=== PATIENT | female | born 1950 | race American Indian/Alaskan Native ===

== ENCOUNTER 2018-09-09 07:24 | Day surgery (SDC) | payer MEDICARE ==
[~2018-09-09 07:24] MED LIST: TETRACAINE 0.5% OD SCH
[2018-09-09] MEDS: MYDRIACYL OD SCH ×3 (08:25→08:35)
[2018-09-09] MEDS: AK-Dilate OD SCH ×3 (08:25→08:35)
[2018-09-09] MEDS: VIGAMOX OD SCH ×3 (08:25→08:35)
[2018-09-09] MEDS ORDERED: TETRACAINE 0.5% OD SCH (08:30)
--- NOTE | 2018-09-09 09:12 | Anesthesia Consultation ---
Anesthesia Consult and Med Hx Date of service: 09/09/18 - Airway Anesthetic Teeth Evaluation: Dentures ROM Head & Neck: Adequate Mental/Hyoid Distance: Adequate Mallampati Class: Class I Intubation Access Assessment: Good - Pulmonary Exam CTA: Yes - Cardiac Exam Cardiac Exam: RRR - Pre-Operative Health Status ASA Pre-Surgery Classification: ASA3 Proposed Anesthetic Plan: MAC - Pulmonary Hx Smoking: Yes (FORMER QUIT 40 YEARS AGO) Hx Asthma: Yes (last inhaler use >1 month ago) SOB: No Home Oxygen Therapy: No - Cardiovascular System Hx Hypertension: Yes (took carvedilol today) Hx Coronary Artery Disease: Yes Hx Heart Attack/AMI: Yes (x3; most recent 2014) Hx Angina: No Hx Percutaneous Transluminal Coronary Angioplasty (PTCA): Yes (stent x3; most recent 2014) Hx Cardia Arrhythmia: No Hx Pacemaker: No Hx Internal Defibrillator: No - Central Nervous System Hx Seizures: No CVA: Yes (x2; most recent 1989 w/ L sided weakness) Hx Psychiatric Problems: Yes (bipolar disorder) - Gastrointestinal Hx Gastroesophageal Reflux Disease: Yes (well controlled) - Endocrine Hx Renal Disease: No Hx Liver Disease: No Hx Insulin Dependent Diabetes: Yes Hx Thyroid Disease: No - Other Systems Hx Obesity: No - Additional Comments Anesthesia Medical History Comments: No hx anesthetic complications. >4 mets functional status, no orthopnea, YEH, angina, palpitations. Per patient, last cardiology visit 1 month ago and reports no recent cardiac issues. Patient has arranged for transportation home from the hospital but will not have anyone in house to care for her until the evening. She states that she has neighbors that are aware of surgery today and are willing to check on her. Will plan for minimal sedation (possibly no sedating medications) as tolerated and prolonged monitoring in PACU to ensure appropriate level of alertness prior to d/c. Risks discussed with patient who verbalizes understanding. Case also discussed with risk management.
--- NOTE | 2018-09-09 09:12 | Anesthesia Day of Surgery ---
Anesthesia Day of Surgery - Day of Surgery Patient Examined: Yes Patient H&P Reviewed: Yes Patient is NPO: Yes Beta Blockers: Yes
[2018-09-09] MEDS ORDERED: DIAMOX PO NR (09:30)
[2018-09-09] MEDS ORDERED: DIAMOX ONE (09:30)
--- NOTE | 2018-09-09 09:30 | Operative Report ---
Operative Report Operative Report: PATIENT'S NAME: DATE OF : DATE OF SURGERY: 09/09/2018 PREOPERATIVE DIAGNOSIS: Cataract right eye POSTOPERATIVE DIAGNOSIS: Same OPERATIVE PROCEDURE: Phacoemulsification with intraocular lens implantation, right eye SURGEON: She Priest M.D. HUMAN RESOURCES TEMP SURGEON: Jesenia Lens: [id number] 25.0 D ANESTHESIA: Monitored anesthesia care in combination with topical and intracameral anesthesia because of the established specific risk of reflux, arrhythmias, or anxiety attacks associated with ocular manipulation, as well as the difficulty of the glove brusher to manage such potentially catastrophic events while simultaneously attempting to complete the surgical procedure and was deemed necessary for the patient's safety to have an Recoating Machine Operator present during the procedure whenever possible. An Recoating Machine Operator was utilized to regulate the intravenous sedation of the patient so the patient was cooperative yet not asleep in order for the patient to successfully maintain fixation of the eye on the operating light of the microscope. COMPLICATIONS: No surgical complications No blood loss. ALLERGIES: No known drug allergies PROGNOSIS: Excellent INDICATIONS FOR SURGERY: The patient is undergoing surgery in the hopes of eliminating or improving these visual difficulties. PROCEDURE: After arriving at the surgery center, the patient was given topical anesthetic and dilating drops, as noted in the record. The patient was then taken into the operating room and given more anesthetic drops. The eyelids, lashes, and lid margins were scrubbed with Betadine solution, and the patient was draped. The Nurse Recoating Machine Operator administered IV sedation and monitored the patient during the procedure. The eye was then fixated with a 0.12, and a stab incision was made in the peripheral clear cornea into the anterior chamber. This was made on my left side. Viscoelastic was next used to fill the anterior chamber. The eye was once again fixated with the 0.12 forceps and a keratome was used make an incision in clear cornea peripherally on my right hand side temporally. The capsule forceps were used to open the central anterior capsule and then make a continuous round capsulotomy. Hydrodissection was carried out utilizing a cannula and balanced salt solution to delineate the cortical material from the capsule and the nucleus from the cortical material. The phaco tip was introduced into the eye and used to remove the anterior cortical material in the area of the capsulotomy. Then the phaco tip was buried into the nucleus, and a chopping instrument was introduced into the eye and used to provide countertraction in the nucleus between this instrument and the phaco tip fracturing the nucleus. This procedure was repeated multiple times, providing multiple small segments of the lens, and then the phaco tip was used to remove each of these segments. An I/A tip was then used to remove the remaining cortex. The anterior chamber was refilled with viscoelastic. An one-piece, acrylic intraocular lens was then placed into an inserting cartridge. The tip of the inserting cartridge was introduced into the keratome incision and into the anterior chamber. The implant was gently advanced through the cartridge and into the eye, where it unfolded, and both haptics were placed in the capsular bag, where it centered nicely and appeared to be well fixated. After placement of the intraocular lens, the I~and~A handpiece was placed back into the eye and used to remove the viscoelastic, including viscoelastic that was behind the optic of the intraocular lens. The anterior chamber was then filled with balanced salt solution, and hydration of the wound was used to cause swelling of the wound and more appropriate watertight closure. When the wound was found to be firm, the patient was asked to comment on how bright the light was. If there was no light perception at all or if the light was substantially dimmer than during the rest of the surgery, the amount of fluid in the eye was decompressed to lower the intraocular pressure until the patient could see the bright light again. This was done to avoid any damage or decreased blood flow to the optic nerve. MEDICATIONS APPLIED AT END OF SURGERY: One drop of Pred Forte and Vigamox The patient was given a shield to wear at night and was instructed not to rub or push on the eye. DISCHARGE SUMMARY: The patient was released in stable condition. The patient and those with the patient were given a written sheet of postoperative instructions and counseling on any abnormal laboratory studies. The patient is to see us tomorrow for follow-up in the office and is to call immediately for any difficulties. She Priest M.D. Date
--- NOTE | 2018-09-09 09:31 | Short Stay Summary ---
Short Stay Documentation Date of service: 09/09/18 - History H&P: obtained from office - Allergies and Medications Current Medications: Allergies No Known Allergies Allergy (Verified 09/08/18 11:07) Home Medications Medication Instructions Recorded Confirmed Last Taken Type Acetaminophen [Tylenol Arthritis] 650 mg PO DAILY 09/08/18 09/08/18 Unknown History Albuterol Sulfate [Ventolin Hfa] 1 puff IH Q4H PRN 09/08/18 09/08/18 Unknown History Alendronate Sodium [Fosamax] 70 mg PO QWEEK 09/08/18 09/08/18 Unknown History Atorvastatin [Lipitor Tab] 80 mg PO QHS 09/08/18 09/08/18 Unknown History Bimatoprost [Lumigan] 1 drop OP QHS 09/08/18 09/08/18 Unknown History Insulin Glargine,Hum.rec.anlog 10 unit SQ QHS 09/08/18 09/08/18 Unknown History [Basaglar Titi U-100] Ipratropium/Albuterol Sulfate 1 puff INHALATION BID 09/08/18 09/08/18 Unknown History [Combivent Respimat] Lisinopril [Zestril TAB] 40 mg PO DAILY 09/08/18 09/08/18 Unknown History Metformin HCl [Glucophage] 1,000 mg PO BID 09/08/18 09/08/18 Unknown History Nitroglycerin [Nitrostat] 0.4 mg SL Q5M PRN 09/08/18 09/08/18 Unknown History Sertraline [Zoloft] 100 mg PO QHS 09/08/18 09/08/18 Unknown History amLODIPine [Norvasc] 10 mg PO DAILY 09/08/18 09/08/18 Unknown History glipiZIDE [glipiZIDE ER] 5 mg PO QAM 09/08/18 09/08/18 Unknown History hydroCHLOROthiazide [HCTZ] 25 mg PO QDAY 09/08/18 09/08/18 Unknown History Active Medications Acetazolamide (Diamox) 500 mg PO ONCE ONE Stop: 09/09/18 09:30 Moxifloxacin HCl (Vigamox) 1 drops OD Q5MIN [facility] Stop: 09/11/18 06:06 Last Admin: 09/09/18 08:35 Dose: 1 drops Documented by: Phenylephrine HCl (Ak-Dilate) 1 drops OD Q5MIN [facility] Stop: 09/11/18 06:06 Last Admin: 09/09/18 08:35 Dose: 1 drops Documented by: Prednisolone Acetate (Pred Forte 1%) 1 drops OD QID [facility] Tetracaine HCl (Tetracaine 0.5%) 1 drops OD ONCE [facility] Stop: 09/11/18 08:31 Last Admin: 09/09/18 08:25 Dose: 1 drops Documented by: Tropicamide (Mydriacyl) 1 drops OD Q5MIN [facility] Stop: 09/11/18 06:10 Last Admin: 09/09/18 08:35 Dose: 1 drops Documented by: - Brief post op/procedure progress note Date of procedure: 09/09/18 Pre-op diagnosis: right cataract Post-op diagnosis: same Procedure: Phacoemulsification with intraocular lens insertion right eye Anesthesia: MAC, local Surgeon: OMKAR OLSON Estimated blood loss: none Pathology: none Condition: stable - Disposition Condition at discharge: Good Disposition: DC-01 TO HOME OR SELFCARE - Discharge Diagnoses (1) Cortical age-related cataract of right eye Status: Resolved Short Stay Discharge Plan Follow up with: ZOË BURDEN [Other] - 7 Days
[2018-09-09] MEDS ORDERED: PRED FORTE 1% OD SCH (10:00)
[2018-09-09 11:07] VITALS: BP 114/58
--- NOTE | 2018-09-09 14:41 | Post Anesthesia Evaluation ---
- Post Anesthesia Evaluation Patient Participated: Yes Airway Patent: Yes Stable Respiratory Function: Yes Nausea/Vomiting: No Temp > 96.8F: Yes Pain Manageable: Yes Adequeate Hydration: Yes Anesthesia Complications: No Other Comments: Patient awake, alert, A/O x3.
== END 2018-09-09 12:20 | disposition home or self-care (01) ==
LOC: OR 07:24
DX: H25.011 Cortical age-related cataract, right eye (principal); I11.0 Hypertensive heart disease with heart failure; I50.9 Heart failure, unspecified; I25.2 Old myocardial infarction; E78.00 Pure hypercholesterolemia, unspecified; E11.36 Type 2 diabetes mellitus with diabetic cataract; J45.909 Unspecified asthma, uncomplicated; K21.9 Gastro-esophageal reflux disease without esophagitis; M19.90 Unspecified osteoarthritis, unspecified site; M81.0 Age-related osteoporosis without current pathological fracture; F31.9 Bipolar disorder, unspecified; Z79.899 Other long term (current) drug therapy; Z79.4 Long term (current) use of insulin; Z80.0 Family history of malignant neoplasm of digestive organs; Z98.890 Other specified postprocedural states; Z79.84 Long term (current) use of oral hypoglycemic drugs; Z79.01 Long term (current) use of anticoagulants; Z87.891 Personal history of nicotine dependence; Z86.73 Personal history of transient ischemic attack (TIA), and cerebral infarction without residual deficits; Z88.8 Allergy status to other drugs, medicaments and biological substances
CPT/HCPCS: 82962; J2250; V2632

== ENCOUNTER 2018-10-21 06:39 | Day surgery (SDC) | payer MEDICARE ==
--- NOTE | 2018-10-21 07:30 | Anesthesia Day of Surgery ---
Anesthesia Day of Surgery - Day of Surgery Patient Examined: Yes Patient H&P Reviewed: Yes Patient is NPO: Yes
--- NOTE | 2018-10-21 07:30 | Anesthesia Consultation ---
Anesthesia Consult and Med Hx Date of service: 10/21/18 - Airway Anesthetic Teeth Evaluation: Good ROM Head & Neck: Adequate Mental/Hyoid Distance: Adequate Mallampati Class: Class II Intubation Access Assessment: Good - Pulmonary Exam CTA: Yes - Cardiac Exam Cardiac Exam: RRR - Pre-Operative Health Status ASA Pre-Surgery Classification: ASA3 Proposed Anesthetic Plan: MAC - Pulmonary Hx Smoking: Yes (FORMER QUIT 40 YEARS AGO) Hx Asthma: Yes (MAINTENANCE AND RESCUE INHALER) SOB: No - Cardiovascular System Hx Hypertension: Yes (1982) Hx Coronary Artery Disease: Yes Hx Heart Attack/AMI: Yes (/ / ) Hx Angina: No Hx Percutaneous Transluminal Coronary Angioplasty (PTCA): Yes Hx Cardia Arrhythmia: No Hx Pacemaker: No Hx Internal Defibrillator: No - Central Nervous System Hx Seizures: No CVA: Yes (x2; most recent 1989 w/ L sided weakness) Hx Psychiatric Problems: Yes - Gastrointestinal Hx Gastroesophageal Reflux Disease: Yes (well controlled) - Endocrine Hx Renal Disease: No Hx Insulin Dependent Diabetes: Yes Hx Thyroid Disease: No - Other Systems Hx Alcohol Use: No Hx Substance Use: No Hx Cancer: No Hx Obesity: No
[2018-10-21] MEDS: AK-Dilate OS SCH ×3 (07:35→07:45)
[2018-10-21] MEDS: VIGAMOX OS SCH ×3 (07:35→07:45)
[2018-10-21] MEDS: TETRACAINE 0.5% OS PRN ×2 (07:35→07:40)
[2018-10-21] MEDS: MYDRIACYL OS SCH ×3 (07:35→07:45)
[2018-10-21] MEDS ORDERED: SUBLIMAZE ONE (08:06)
[2018-10-21] MEDS ORDERED: VERSED ONE (08:06)
--- NOTE | 2018-10-21 08:50 | Operative Report ---
Operative Report Operative Report: PATIENT'S NAME: DATE OF : DATE OF SURGERY: 10/21/2018 PREOPERATIVE DIAGNOSIS: Cataract left eye POSTOPERATIVE DIAGNOSIS: Same OPERATIVE PROCEDURE: Phacoemulsification with intraocular lens implantation, left eye SURGEON: She Priest M.D. MACHINE OPERATOR HOP WORKER SURGEON: Jesenia Lens: [id number] 24.5 D ANESTHESIA: Monitored anesthesia care in combination with topical and intracameral anesthesia because of the established specific risk of reflux, arrhythmias, or anxiety attacks associated with ocular manipulation, as well as the difficulty of the paid internship to manage such potentially catastrophic events while simultaneously attempting to complete the surgical procedure and was deemed necessary for the patient's safety to have an Out Of School Hours Care Worker present during the procedure whenever possible. An Out Of School Hours Care Worker was utilized to regulate the intravenous sedation of the patient so the patient was cooperative yet not asleep in order for the patient to successfully maintain fixation of the eye on the operating light of the microscope. COMPLICATIONS: [No surgical complications] No blood loss. ALLERGIES: SHRIMP PROGNOSIS: Excellent INDICATIONS FOR SURGERY: The patient is undergoing surgery in the hopes of eliminating or improving these visual difficulties. PROCEDURE: After arriving at the surgery center, the patient was given topical anesthetic and dilating drops, as noted in the record. The patient was then taken into the operating room and given more anesthetic drops. The eyelids, lashes, and lid margins were scrubbed with Betadine solution, and the patient was draped. The Nurse Out Of School Hours Care Worker administered IV sedation and monitored the patient during the procedure. The eye was then fixated with a 0.12, and a stab incision was made in the peripheral clear cornea into the anterior chamber. This was made on my left side. Viscoelastic was next used to fill the anterior chamber. The eye was once again fixated with the 0.12 forceps and a keratome was used make an incision in clear cornea peripherally on my right hand side temporally. The capsule forceps were used to open the central anterior capsule and then make a continuous round capsulotomy. Hydrodissection was carried out utilizing a cannula and balanced salt solution to delineate the cortical material from the capsule and the nucleus from the cortical material. The phaco tip was introduced into the eye and used to remove the anterior cortical material in the area of the capsulotomy. Then the phaco tip was buried into the nucleus, and a chopping instrument was introduced into the eye and used to provide countertraction in the nucleus between this instrument and the phaco tip fracturing the nucleus. This procedure was repeated multiple times, providing multiple small segments of the lens, and then the phaco tip was used to remove each of these segments. An I/A tip was then used to remove the remaining cortex. The anterior chamber was refilled with viscoelastic. An one-piece, acrylic intraocular lens was then placed into an inserting cartridge. The tip of the inserting cartridge was introduced into the keratome incision and into the anterior chamber. The implant was gently advanced through the cartridge and into the eye, where it unfolded, and both haptics were placed in the capsular bag, where it centered nicely and appeared to be well fixated. After placement of the intraocular lens, the I~and~A handpiece was placed back into the eye and used to remove the viscoelastic, including viscoelastic that was behind the optic of the intraocular lens. The anterior chamber was then filled with balanced salt solution, and hydration of the wound was used to cause swelling of the wound and more appropriate watertight closure. When the wound was found to be firm, the patient was asked to comment on how bright the light was. If there was no light perception at all or if the light was substantially dimmer than during the rest of the surgery, the amount of fluid in the eye was decompressed to lower the intraocular pressure until the patient could see the bright light again. This was done to avoid any damage or decreased blood flow to the optic nerve. MEDICATIONS APPLIED AT END OF SURGERY: One drop of Pred Forte and Vigamox The patient was given a shield to wear at night and was instructed not to rub or push on the eye. DISCHARGE SUMMARY: The patient was released in stable condition. The patient and those with the patient were given a written sheet of postoperative instructions and counseling on any abnormal laboratory studies. The patient is to see us tomorrow for follow-up in the office and is to call immediately for any difficulties. She Priest M.D. Date
--- NOTE | 2018-10-21 08:51 | Short Stay Summary ---
Short Stay Documentation Date of service: 10/21/18 - History H&P: obtained from office - Allergies and Medications Current Medications: Allergies shrimp Adverse Reaction (Verified 09/24/18 15:49) Itching Home Medications Medication Instructions Recorded Confirmed Last Taken Type Acetaminophen [Tylenol Arthritis] 650 mg PO DAILY 09/08/18 09/24/18 09/08/18 History Albuterol Sulfate [Ventolin Hfa] 1 puff IH Q4H PRN 09/08/18 09/24/18 09/08/18 History Alendronate Sodium [Fosamax] 70 mg PO QWEEK 09/08/18 09/24/18 Unknown History Atorvastatin [Lipitor Tab] 80 mg PO QHS 09/08/18 09/24/18 09/08/18 History Bimatoprost [Lumigan] 1 drop OP QHS 09/08/18 09/24/18 09/08/18 History Insulin Glargine,Hum.rec.anlog 10 unit SQ QHS 09/08/18 09/24/18 09/08/18 History [Basaglar Kwikpen U-100] Ipratropium/Albuterol Sulfate 1 puff INHALATION BID 09/08/18 09/24/18 09/05/18 History [Combivent Respimat] Lisinopril [Zestril TAB] 40 mg PO DAILY 09/08/18 09/24/18 09/09/18 History Metformin HCl [Glucophage] 1,000 mg PO BID 09/08/18 09/24/18 09/08/18 History Nitroglycerin [Nitrostat] 0.4 mg SL Q5M PRN 09/08/18 09/24/18 07/09/18 History Sertraline [Zoloft] 100 mg PO QHS 09/08/18 09/24/18 09/08/18 History amLODIPine [Norvasc] 10 mg PO DAILY 09/08/18 09/24/18 09/08/18 History glipiZIDE [glipiZIDE ER] 5 mg PO QAM 09/08/18 09/24/18 09/08/18 History hydroCHLOROthiazide [HCTZ] 25 mg PO QDAY 09/08/18 09/24/18 09/08/18 History Active Medications Acetazolamide (Diamox) 500 mg PO ONCE ONE Stop: 10/21/18 08:50 Moxifloxacin HCl (Vigamox) 1 drops OS Q5M [facility] Stop: 10/21/18 20:00 Phenylephrine HCl (Ak-Dilate) 1 drops OS Q5M [facility] Stop: 10/21/18 20:00 Tetracaine HCl (Tetracaine 0.5%) 1 drops OS Q5M PRN PRN Reason: Anesthesia Stop: 10/21/18 20:00 Tropicamide (Mydriacyl) 1 drops OS Q5M [facility] Stop: 10/21/18 20:00 - Brief post op/procedure progress note Date of procedure: 10/21/18 Pre-op diagnosis: left cataract Post-op diagnosis: same Procedure: Phacoemulsification with intraocular lens insertion left eye Anesthesia: MAC, local Surgeon: OMKAR OLSON Estimated blood loss: none Pathology: none Condition: stable - Disposition Condition at discharge: Good Disposition: DC-01 TO HOME OR SELFCARE - Discharge Diagnoses (1) Cortical age-related cataract of left eye Status: Resolved Short Stay Discharge Plan Follow up with: ZOË AL [Other] - 7 Days
[2018-10-21] MEDS ORDERED: DIAMOX PO ONE (09:30)
[2018-10-21] MEDS ORDERED: PRED FORTE 1% OS NR (10:00)
--- NOTE | 2018-10-21 12:02 | Post Anesthesia Evaluation ---
- Post Anesthesia Evaluation Patient Participated: Yes Airway Patent: Yes Stable Respiratory Function: Yes Nausea/Vomiting: No Temp > 96.8F: Yes Pain Manageable: Yes Adequeate Hydration: Yes Anesthesia Complications: No
[2018-10-21] MEDS ORDERED: DIAMOX ONE (13:43)
[2018-10-21 14:21] VITALS: BP 117/65
== END 2018-10-21 10:35 | disposition home or self-care (01) ==
LOC: EDBD → OR 06:39
DX: E11.36 Type 2 diabetes mellitus with diabetic cataract (principal); H25.012 Cortical age-related cataract, left eye; I11.0 Hypertensive heart disease with heart failure; I50.9 Heart failure, unspecified; E78.00 Pure hypercholesterolemia, unspecified; K21.9 Gastro-esophageal reflux disease without esophagitis; M19.90 Unspecified osteoarthritis, unspecified site; M81.0 Age-related osteoporosis without current pathological fracture; F31.9 Bipolar disorder, unspecified; E11.39 Type 2 diabetes mellitus with other diabetic ophthalmic complication; H40.9 Unspecified glaucoma; Z79.4 Long term (current) use of insulin; Z79.84 Long term (current) use of oral hypoglycemic drugs; Z79.899 Other long term (current) drug therapy; Z87.891 Personal history of nicotine dependence; Z80.0 Family history of malignant neoplasm of digestive organs; Z98.890 Other specified postprocedural states; Z88.8 Allergy status to other drugs, medicaments and biological substances
CPT/HCPCS: 66984; 82962; J2250; J3010; V2632